=== PATIENT | male | born 1960 | race Caucasian/White ===

== ENCOUNTER 2024-04-29 13:51 | Emergency (ER) | payer BC, MEDICAID, OTHER ==
[2024-04-29 15:49] LABS: Absolute Eosinophils 0.2 K/uL (0-0.5); Absolute Lymphocytes (CBC) 1.9 K/uL (0.7-4.9); Absolute Monocytes 0.3 K/uL (0.1-1.3); Basophils % 0.5 % (0-1.3); Eosinophils % 2.5 % (0-4.4); Hematocrit 46.5 % (39.6-49.0); Hemoglobin 16.5 g/dL (13.6-17.9); Lymphocytes % 29.2 % (15.3-44.8); MCHC 35.4 g/dL (32.0-36.0); MCV 87.6 fL (80-100); Monocytes % 5.5 % (3.3-12.3); Neutrophils % 62.3 % (41.7-73.7); Nucleated Red Blood Cells % 0.1 % (0-0); Platelets 222 thou/uL (152-406); Red Cell Distribution Width 12.7 % (12.1-15.2)
[2024-04-29 15:55] LABS: PT Prothrombin Time 11.7 SECONDS (10-13.0); Protime INR 1.03
--- NOTE | 2024-04-29 16:07 | RAD REPORT ---
EXAMINATION: ONE VIEW CHEST XR CLINICAL INDICATION: Male, 63 years old.,CHEST PAIN TECHNIQUE: Frontal chest projection is submitted. Examination is limited by patient positioning and t echnique. COMPARISON: No prior exam. FINDINGS: The lungs are well inflated and clear. No pneumothorax or sizable effusion. The heart is normal in s ize. Mediastinal contours are unremarkable. IMPRESSION: No acute intrathoracic abnormalities.
[2024-04-29 16:08] LABS: ALT/SGPT 37 U/L (16-61); AST/SGOT 19 U/L (15-37); Albumin/Globulin Ratio 1.1 (1.1-1.8); Alkaline Phosphatase 97 U/L (45-117); Anion Gap 7.2 mEq/L (5.0-15.0); BUN Blood Urea Nitrogen 14 mg/dL (7-18); Bicarbonate 29 mEq/L (21-32); Bilirubin Total 0.5 mg/dL (0.2-1.0); Globulin 3.8 g/dL (2.3-3.5); Glomerular Filtration Rate 79 ml/min (=/>90); Glucose Level 114 mg/dL (74-106); Magnesium 2.3 mg/dL (1.6-2.4); Potassium 4.2 mEq/L (3.5-5.1); Protein, Total 7.8 g/dL (6.4-8.2); Sodium Level 138 mEq/L (136-145); Troponin High Sensitivity 5.9 pg/mL (<58.9)
[2024-04-29] MEDS ORDERED: ASPIRIN 81 MG CHEWABLE TABLET ONE (16:08)
[2024-04-29 16:09] LABS: Bilirubin Direct < 0.2 mg/dL (0-0.2); Bilirubin Indirect, Calculated 0.3 mg/dL (0.2-0.8)
--- NOTE | 2024-04-29 18:38 | ER ---
Nurse's Notes [facility] Name: Piter Whittington Age: 63 yrs Sex: Male : 1960 Arrival Date: 04/29/2024 Time: 13:51 Bed DX4 Private MD: Diagnosis: Chest pain, unspecified Presentation: 04/29 14:01 Chief complaint: Patient states: Intermittent chest pain - felt like ld1 needles/electricity running through my heart. Coronavirus screen: At this time, the client does not indicate any symptoms associated with coronavirus-19. Ebola Screen: No symptoms or risks identified at this time. Initial Sepsis Screen: Does the patient meet any 2 criteria? No. Patient's initial sepsis screen is negative. Does the patient have a suspected source of infection? No. Patient's initial sepsis screen is negative. Risk Assessment: Do you want to hurt yourself or someone else? Patient reports no desire to harm self or others. Onset of symptoms was April 29, 2024. 14:01 Method Of Arrival: Ambulatory ld1 14:01 Acuity: ANGELITA 2 kb3 Triage Assessment: 14:02 General: Appears in no apparent distress. comfortable, Behavior is calm, cooperative, ld1 appropriate for age. Pain: Complains of pain in chest Pain does not radiate. Pain currently is 0 out of 10 on a pain scale. at worst was 7 out of 10 on a pain scale. Quality of pain is described as stabbing, tingling, throbbing. EENT: No signs and/or symptoms were reported regarding the EENT system. Neuro: Level of Consciousness is awake, alert, obeys commands, Oriented to person, place, time, situation. Cardiovascular: Capillary refill < 3 seconds Patient's skin is warm and dry. Cardiovascular: Reports chest pain, Rhythm is sinus rhythm. Respiratory: Airway is patent Respiratory effort is even, unlabored. GI: Abdomen is flat, non-distended. : No signs and/or symptoms were reported regarding the genitourinary system. Derm: No signs and/or symptoms reported regarding the dermatologic system. Musculoskeletal: No signs and/or symptoms reported regarding the musculoskeletal system. Historical: - Allergies: 14:02 No Known Allergies; ld1 - PMHx: 14:02 None; ld1 - PSHx: 14:02 None; ld1 - Immunization history:: Adult Immunizations. - Infectious Disease History:: Denies. - Social history:: Smoking status: Patient denies any tobacco usage or history of. Vital Signs: 14:01 BP 183 / 97; Pulse 74; Resp 18; Temp 98.1(TE); Pulse Ox 95% on R/A; Weight 95.25 kg; ld1 Height 5 ft. 10 in. ; Pain 0/10; 18:31 BP 148 / 82; Pulse 72; Resp 18; Pulse Ox 99% ; rk3 14:01 Body Mass Index 30.13 (95.25 kg, 177.8 cm) ld1 14:01 Pain Scale: Adult ld1 ED Course: 13:52 Patient arrived in ED. mr 13:52 Scotty Renee PA is PHCP. cp 13:52 Anjum Coleman MD is Attending Physician. cp 14:02 Triage completed. ld1 14:02 Arm band placed on right wrist. ld1 15:01 XRAY Chest (1 view) In Process Unspecified. EDMS 15:45 Inserted saline lock: 20 gauge in left antecubital area, using aseptic technique. Blood rk3 collected. Flushed with 10 mL NS Missed attempt(s): 20 gauge in right antecubital area. Bleeding controlled, band aid applied, catheter tip intact. 17:53 Troponin High Sensitivity Sent. rk3 18:37 Lucius Villafana MD is Referral Physician. cp Administered Medications: 16:12 Drug: Aspirin PO Chewable Tablet 324 mg PO once; 81 mg tablets x 4 Route: PO; ld1 18:30 CANCELLED (Physician Discretion): metoprolol5 mg IVP once; Hold for SBP <100 or HR <60. cp give if systolic pressure >170 18:31 CANCELLED (Physician Discretion): [id number] mg PO once; if systolic pressure over 170cp Outcome: 18:38 Discharge ordered by . cp 19:02 Patient left the ED. cp Signatures: Dispatcher [employer] EDMS Farheen Walker, Reg Reg mr Scotty Renee PA PA cp Felicia South RN RN ld1 Yenny Hayward RN RN kb3 Derek Thompson rk3 Corrections: (The following items were deleted from the chart) 15:24 14:01 Acuity: ANGELITA 3 ld1 kb3
--- NOTE | 2024-04-29 18:38 | EDPHYS ---
Physician Documentation [facility] Name: Piter Whittington Age: 63 yrs Sex: Male : 1960 Arrival Date: 04/29/2024 Time: 13:51 Bed DX4 Private MD: ED Physician Anjum Coleman HPI: 04/29 13:56 This 63 yrs old Male presents to ER via Unassigned with complaints of Chest Pain. cp 13:56 The patient or guardian reports chest pain that is located primarily in the anterior cp chest wall, left. Onset: 10 minute(s) ago. The pain does not radiate. 13:56 The chest pain is described as described as electricity through chest and heart. cp 13:56 Duration: The patient or guardian reports a single episode, that is now resolved, that cp lasted 15 second(s). Modifying factors: the symptoms are aggravated by nothing. 13:56 Associated signs and symptoms: Pertinent negatives: abdominal pain, diaphoresis, cp dizziness, headache, lower extremity pain, lower extremity swelling, near syncope, shortness of breath, syncope, vomiting. Historical: - Allergies: 14:02 No Known Allergies; ld1 - PMHx: 14:02 None; ld1 - PSHx: 14:02 None; ld1 - Immunization history:: Adult Immunizations. - Infectious Disease History:: Denies. - Social history:: Smoking status: Patient denies any tobacco usage or history of. ROS: 14:00 Constitutional: Negative for body aches, chills, fever, poor PO intake, cp 14:00 Cardiovascular: Positive for chest pain, Negative for edema, palpitations, cp 14:00 Eyes: Negative for injury, pain, redness, and discharge, cp 14:00 ENT: Negative for drainage from ear(s), ear pain, sore throat, difficulty swallowing, difficulty handling secretions, 14:00 Respiratory: Negative for cough, shortness of breath, wheezing, 14:00 Abdomen/GI: Negative for abdominal pain, vomiting, diarrhea, constipation, 14:00 Back: Negative for pain at rest, pain with movement, 14:00 Neuro: Negative for altered mental status, dizziness, headache, numbness, syncope, near syncope, weakness, 14:00 All other systems are negative, Exam: 14:05 Constitutional: The patient appears in no acute distress, alert, awake, cp non-diaphoretic, non-toxic, well developed, well nourished, 14:05 Head/Face: Normocephalic, atraumatic. cp 14:05 Eyes: Periorbital structures: appear normal, Conjunctiva: normal, no exudate, no injection, Sclera: no appreciated abnormality, Lids and lashes: appear normal, bilaterally, 14:05 ENT: External ear(s): are unremarkable, Nose: is normal, Mouth: Lips: moist, Oral mucosa: moist, Posterior pharynx: Airway: no evidence of obstruction, patent, 14:05 Neck: ROM/movement: is normal, is supple, without pain, no range of motions limitations, no meningismus, no nuchal rigidity, 14:05 Chest/axilla: Inspection: normal, Palpation: crepitus, is not appreciated, tenderness, is not appreciated, 14:05 Cardiovascular: Rate: normal, Rhythm: regular, Edema: is not appreciated, JVD: is not appreciated, 14:05 Respiratory: the patient does not display signs of respiratory distress, Respirations: normal, no use of accessory muscles, no retractions, labored breathing, is not present, Breath sounds: are clear throughout, no decreased breath sounds, no stridor, no wheezing, 14:05 Abdomen/GI: Inspection: abdomen appears normal, Bowel sounds: active, all quadrants, Palpation: abdomen is soft and non-tender, in all quadrants, 14:05 Back: pain, is absent, ROM is normal, 14:05 Neuro: Orientation: is normal, Mentation: is normal, Motor: moves all fours, strength is normal, Sensation: is normal, 14:10 ECG was reviewed by the Attending Physician. cp 17:53 ECG was reviewed by the Attending Physician. cp Vital Signs: 14:01 BP 183 / 97; Pulse 74; Resp 18; Temp 98.1(TE); Pulse Ox 95% on R/A; Weight 95.25 kg; ld1 Height 5 ft. 10 in. ; Pain 0/10; 18:31 BP 148 / 82; Pulse 72; Resp 18; Pulse Ox 99% ; rk3 14:01 Body Mass Index 30.13 (95.25 kg, 177.8 cm) ld1 14:01 Pain Scale: Adult ld1 MDM: 18:38 Medical Screening Exam initiated cp 18:38 Data reviewed: vital signs, nurses notes, lab test result(s), EKG, radiologic studies, cp plain films, and as a result, I will discharge patient. 18:38 Consideration of Admission/Observation Escalation of care including cp admission/observation considered. I considered the following discharge prescriptions or medication management in the emergency department Medications were administered in the Emergency Department. See MAR. Independent interpretation of the following test(s) in the Emergency Department EKG: See my EKG interpretation above. Counseling: I had a detailed discussion with the patient and/or guardian regarding the historical points, exam findings, and any diagnostic results supporting the discharge/admit diagnosis, lab results, radiology results, the need for outpatient follow up, a makeup sales consultant, to return to the emergency department if symptoms worsen or persist or if there are any questions or concerns that arise at home. Special discussion: Based on the patient's history, exam, and Dx evaluation, there is no indication for emergent intervention or inpatient Tx. It is understood by the patient/guardian that if the Sx's persist or worsen they need to return immediately for re-evaluation. ED course: VSS. Initial and repeat troponin and EKGs negative. Will discharge to home to f/u outpatient with cardiology. Patient instructed he can return at any time symptoms return/worsen. 04/29 13:57 Order name: Basic Metabolic Panel; Complete Time: 16:10 cp 04/29 16:10 Interpretation: Normal except: GLUC 114; GFR 79. cp 04/29 13:57 Order name: CBC with Diff; Complete Time: 16:10 cp 04/29 13:57 Order name: LFT's; Complete Time: 16:10 cp 04/29 16:11 Interpretation: Normal except: GLOB 3.8. cp 04/29 13:57 Order name: Magnesium; Complete Time: 16:10 cp 04/29 13:57 Order name: PT-INR; Complete Time: 16:10 cp 04/29 13:57 Order name: Troponin HS; Complete Time: 16:10 cp 04/29 16:11 Interpretation: Reviewed. cp 04/29 17:25 Order name: Troponin High Sensitivity; Complete Time: 18:12 cp 04/29 18:12 Interpretation: Reviewed. cp 04/29 13:57 Order name: XRAY Chest (1 view); Complete Time: 16:10 cp 04/29 16:11 Interpretation: Report review. cp 04/29 13:57 Order name: EKG; Complete Time: 13:57 cp 04/29 13:57 Order name: Cardiac monitoring; Complete Time: 16:50 cp 04/29 13:57 Order name: EKG - Nurse/Tech; Complete Time: 14:04 cp 04/29 13:57 Order name: IV Saline Lock; Complete Time: 15:45 cp 04/29 13:57 Order name: Labs collected and sent; Complete Time: 15:45 cp 04/29 13:57 Order name: O2 Per Protocol; Complete Time: 16:50 cp 04/29 13:57 Order name: O2 Sat Monitoring; Complete Time: 16:50 cp 04/29 17:25 Order name: EKG - Nurse/Tech; Complete Time: 17:53 cp 04/29 18:12 Order name: Blood Pressure Recheck; Complete Time: 18:31 cp EC:10 Rate is 74 beats/min. Rhythm is regular. UT interval is normal. QRS interval is normal. cp QT interval is normal. T waves are Inverted in leads III, aVR. Interpreted by me. Reviewed by me. 17:53 Rate is 72 beats/min. Rhythm is regular. UT interval is normal. QRS interval is normal. cp QT interval is normal. T waves are Inverted in leads III, aVR. Interpreted by me. Reviewed by me. Administered Medications: 16:12 Drug: Aspirin PO Chewable Tablet 324 mg PO once; 81 mg tablets x 4 Route: PO; ld1 18:30 CANCELLED (Physician Discretion): metoprolol5 mg IVP once; Hold for SBP <100 or HR <60. cp give if systolic pressure >170 18:31 CANCELLED (Physician Discretion): [id number] mg PO once; if systolic pressure over 170cp Disposition Summary: 04/29/24 18:38 Discharge Ordered Notes: Location: Home cp Problem: new cp Symptoms: have improved cp Condition: Stable cp Diagnosis - Chest pain, unspecified cp Followup: cp - With: Lucius Vlilafana MD - When: 5 - 6 days - Reason: Recheck today's complaints Discharge Instructions: - Discharge Summary Sheet cp - Nonspecific Chest Pain, Adult cp - Aspirin and Your Heart cp Forms: - Medication Reconciliation Form cp - Antibiotic Education cp - Prescription Opioid Use cp - Patient Portal Instructions cp - Leadership Thank You Letter cp Signatures: Dispatcher [employer] EDMS Scotty Renee PA PA cp Felicia South RN RN ld1 Corrections: (The following items were deleted from the chart) 18:30 18:14 Metoprolol IVP 5 mg IVP once; Hold for SBP <100 or HR <60. give if systolic cp pressure >170 ordered. cp 18:31 18:14 Metoprolol PO 25 mg PO once; if systolic pressure over 170 ordered. cp cp
[2024-04-29 19:06] VITALS: TEMP 98.1
[2024-04-29 19:07] VITALS: BP 148/82; O2SAT 99
== END 2024-04-29 19:02 | disposition home or self-care (01) ==
LOC: ER 13:51
DX: R07.89 Other chest pain (principal)
CPT/HCPCS: 36415; 71045; 80048; 80076; 83735; 84484; 85025; 85610; 93005; 99283